=== PATIENT | female | born 1955 | race Caucasian/White ===

== ENCOUNTER 2018-03-27 10:33 | Emergency (ER) | payer MEDICARE, BC ==
[~2018-03-27] VITALS: Ht 172.7 cm; Wt 121.1 kg
[~2018-03-27 10:33] MED LIST: ALBIPROI; ALBIPROI XX; ALBU90OI INH; ASPI81EC PO; AZIT500; BENZ100A PO; CYCL10 PO; FAMO10 PO; FAMO20; FAMO20 PO; FURO20 PO; FURO40; FURO40 PO; HYDACE5 PO; HYDR-86; HYDR1TAB94 PO; HYDROCODONE-CHLORPHE; LANS30EC; LIDO5TP TOP; LOVA40; MAXALT PO; MELO7.5 PO; Mucinex100 MG PO; Mucinex600 MG PO; NAPR550 PO; Naprosyn500 MG PO; OXYACE5T PO; POTA10T PO; POTCHL10ER; PRED20 PO; PREG75 PO; PROM25 PO; STOOL SOFTENER1 EAC1 PO; TIOT18; VICODIN 5-3001 EACH PO; [UNRECOGNIZED DRUG - REMARK]; [UNRECOGNIZED DRUG - REMARK]
[2018-03-27 11:17] LABS: Source, Urine Clean Catch
[2018-03-27 11:24] LABS: Bilirubin, Urine Neg (Neg); Blood, Urine 1+ (Neg); Glucose Qualitative, Urine Neg (Neg); Ketones, Urine Neg (Neg); Leukocyte Esterase, Urine 1+ (Neg); Nitrite, Urine Neg (Neg); Protein, Urine 1+ (Neg); Urobilinogen, Urine NORM (Normal)
[2018-03-27 11:40] LABS: Appearance, Urine Clear (Clear); Color, Urine Yellow (P-Yellow)
[2018-03-27 11:45] LABS: Bacteria Few /hpf; Red Blood Cells, Urine 0-2 /hpf (0-2); Squamous Epithelial Cells Few /hpf (Few)
[2018-03-27] MEDS ORDERED: Cheratussin AC118 ML PO (11:54)
[2018-03-27] MEDS ORDERED: SINUS 12 HOUR120 MG PO (11:54)
== END 2018-03-27 12:06 | disposition home or self-care (01) ==
LOC: ER 10:33
PROVIDERS: Physician Assistant
DX: J06.9 Acute upper respiratory infection, unspecified (principal); Z91.048 Other nonmedicinal substance allergy status; Z88.8 Allergy status to other drugs, medicaments and biological substances; Z91.018 Allergy to other foods; Z79.899 Other long term (current) drug therapy; Z79.891 Long term (current) use of opiate analgesic; J45.909 Unspecified asthma, uncomplicated
CPT/HCPCS: 81001; 87086; 99283

== ENCOUNTER 2018-10-24 22:27 | Emergency (ER) | payer MEDICARE ==
[~2018-10-24] VITALS: Ht 172.7 cm; Wt 117.9 kg
[~2018-10-24 22:27] MED LIST changes: +Cheratussin AC118 ML PO; +IBUP800 PO; +KETO10 PO; +SINUS 12 HOUR120 MG PO
[2018-10-24] MEDS ORDERED: KETO10 PO (23:39)
[2018-10-24] MEDS ORDERED: Prednisone20 MG PO (23:39)
== END 2018-10-25 00:01 | disposition home or self-care (01) ==
LOC: ER 22:27
DX: M54.42 Lumbago with sciatica, left side (principal); G89.29 Other chronic pain; Z91.018 Allergy to other foods; Z88.1 Allergy status to other antibiotic agents
CPT/HCPCS: 99283; A9270-GY

== ENCOUNTER 2019-05-25 16:13 | Emergency (ER) | payer MEDICARE, BC ==
[~2019-05-25] VITALS: Ht 172.7 cm; Wt 122.5 kg
[~2019-05-25 16:13] MED LIST changes: +Prednisone20 MG PO
[2019-05-25 17:52] LABS: BASOPHILS ABSOLUTE AUTO 0.05 K/mm3 (0.00-0.23); BASOPHILS PERCENT AUTO 0 % (0-2); EOSINOPHILS ABSOLUTE AUTO 0.21 K/mm3 (0.00-0.68); EOSINOPHILS PERCENT AUTO 2 % (0-6); Hematocrit 47.3 % (33.0-51.0); Hemoglobin 14.7 g/dL (11.5-16.0); IMMATURE GRAN ABSOLUTE AUTO 0.03 K/mm3 (0.00-0.10); IMMATURE GRAN PERCENT AUTO 0 % (0-1); LYMPHOCYTES ABSOLUTE AUTO 2.29 K/mm3 (0.84-5.20); LYMPHOCYTES PERCENT AUTO 20 % (21-46); MONOCYTES ABSOLUTE AUTO 0.65 K/mm3 (0.16-1.47); MONOCYTES PERCENT AUTO 6 % (4-13); Mean Corpuscular HGB 29.6 pg (26.0-34.0); Mean Corpuscular HGB Conc 31.1 g/dL (31.5-36.5); Mean Corpuscular Volume 95 fL (80-100); Mean Platelet Volume 9.6 fL (9.1-12.4); NEUTROPHILS ABSOLUTE AUTO 8.19 K/mm3 (1.96-9.15); NEUTROPHILS PERCENT AUTO 72 % (41-73); Platelet Count 237 K/mm3 (150-400); RDW Standard Deviation 45.2 fL (35.1-46.3); Red Blood Cell Count 4.97 M/mm3 (3.80-5.20); White Blood Cell Count 11.42 K/mm3 (4.00-11.30)
[2019-05-25 18:58] LABS: Alanine Aminotransfer (ALT/SGP 40 U/L (12-78); Albumin, Blood 3.4 g/dL (3.4-5.0); Alk Phos 108 U/L (50-136); Anion Gap 5 mmol/L (6-16); Aspartate Aminotrans (AST/SGOT 24 U/L (12-37); Bilirubin, Total 0.6 mg/dL (0.1-1.0); Blood Urea Nitrogen 11 mg/dL (8-24); CO2, Blood 27 mmol/L (21-32); Calcium, Blood 8.5 mg/dL (8.5-10.1); Chloride, Blood 108 mmol/L (98-108); Creatinine, Blood 0.41 mg/dL (0.40-1.00); Globulin, Blood 3.4 g/dL (2.2-4.0); Glomerular Filtration Rate >60 (60-); Glucose, Blood 89 mg/dL (70-99); Potassium, Blood 3.9 mmol/L (3.5-5.5); Sodium, Blood 140 mmol/L (136-145); Total Protein, Blood 6.8 g/dL (6.4-8.2); Troponin I <0.015 ng/mL (0.000-0.040)
[2019-05-25] MEDS ORDERED: Roxicodone5 MG PO (19:16)
[2019-05-25] MEDS ORDERED: PEPCID40 MG PO (19:16)
== END 2019-05-25 19:51 | disposition home or self-care (01) ==
LOC: ER 16:13
PROVIDERS: Physician Assistant
DX: R07.9 Chest pain, unspecified (principal); M79.7 Fibromyalgia
CPT/HCPCS: 36415; 71046; 80053; 84484; 85025; 93005; 93010; 96374; 96375; 99284-25; A9270; J1170; J2405

== ENCOUNTER 2019-11-18 11:27 | Emergency (ER) | payer MEDICARE, BC ==
[~2019-11-18] VITALS: Ht 170.2 cm; Wt 90.7 kg
[~2019-11-18 11:27] MED LIST changes: +PEPCID40 MG PO; +Roxicodone5 MG PO
[2019-11-18] MEDS ORDERED: ZYRTEC10 M2 PO (11:50)
[2019-11-18] MEDS ORDERED: MONTELUKAST TAB 10M (11:53)
[2019-11-18 13:20] LABS: BASOPHILS ABSOLUTE AUTO 0.06 K/mm3 (0.00-0.23); BASOPHILS PERCENT AUTO 0 % (0-2); EOSINOPHILS ABSOLUTE AUTO 0.02 K/mm3 (0.00-0.68); EOSINOPHILS PERCENT AUTO 0 % (0-6); Hematocrit 48.1 % (33.0-51.0); Hemoglobin 15.2 g/dL (11.5-16.0); IMMATURE GRAN ABSOLUTE AUTO 0.07 K/mm3 (0.00-0.10); IMMATURE GRAN PERCENT AUTO 1 % (0-1); LYMPHOCYTES ABSOLUTE AUTO 1.31 K/mm3 (0.84-5.20); LYMPHOCYTES PERCENT AUTO 9 % (21-46); MONOCYTES ABSOLUTE AUTO 0.76 K/mm3 (0.16-1.47); MONOCYTES PERCENT AUTO 5 % (4-13); Mean Corpuscular HGB 29.3 pg (26.0-34.0); Mean Corpuscular HGB Conc 31.6 g/dL (31.5-36.5); Mean Corpuscular Volume 93 fL (80-100); Mean Platelet Volume 9.8 fL (9.1-12.4); NEUTROPHILS PERCENT AUTO 86 % (41-73); Platelet Count 269 K/mm3 (150-400); RDW Coefficient Variation 13.4 % (11.7-14.2); RDW Standard Deviation 45.9 fL (35.1-46.3); Red Blood Cell Count 5.19 M/mm3 (3.80-5.20); White Blood Cell Count 15.42 K/mm3 (4.00-11.30)
[2019-11-18 13:44] LABS: Alanine Aminotransfer (ALT/SGP 38 U/L (12-78); Albumin, Blood 3.4 g/dL (3.4-5.0); Albumin/Globulin Ratio 0.9 (0.8-1.8); Alk Phos 119 U/L (50-136); Anion Gap 6 mmol/L (6-16); Aspartate Aminotrans (AST/SGOT 18 U/L (12-37); Bilirubin, Total 0.7 mg/dL (0.1-1.0); Blood Urea Nitrogen 20 mg/dL (8-24); Bun/Creatinine Ratio 33.8 (12.0-20.0); CO2, Blood 26 mmol/L (21-32); Calcium, Blood 9.3 mg/dL (8.5-10.1); Chloride, Blood 108 mmol/L (98-108); Creatinine, Blood 0.59 mg/dL (0.40-1.00); Globulin, Blood 3.7 g/dL (2.2-4.0); Glomerular Filtration Rate >60 (60-); Glucose, Blood 107 mg/dL (70-99); Potassium, Blood 4.1 mmol/L (3.5-5.5); Sodium, Blood 140 mmol/L (136-145); Total Protein, Blood 7.1 g/dL (6.4-8.2)
[2019-11-18 13:54] LABS: Appearance, Urine Hazy (Clear); Bilirubin, Urine Neg (Neg); Blood, Urine 5+ (Neg); Color, Urine Yellow (P-Yellow); Glucose Qualitative, Urine Neg (Neg); Ketones, Urine Neg (Neg); Leukocyte Esterase, Urine 2+ (Neg); Nitrite, Urine Neg (Neg); Protein, Urine 2+ (Neg); Specific Gravity, Urine 1.025 (1.003-1.022); Urobilinogen, Urine NORM (Normal)
[2019-11-18 14:08] LABS: Red Blood Cells, Urine 25-50 /hpf (0-2)
[2019-11-18 14:09] LABS: Bacteria Many /hpf; Mucus Mod (0-Heavy); Squamous Epithelial Cells Mod /hpf (Few)
[2019-11-18] MEDS ORDERED: IBUP400 PO (14:19)
[2019-11-18] MEDS ORDERED: ONDA4ODT SL (14:19)
[2019-11-18] MEDS ORDERED: Percocet 5-3251 EACH PO (14:19)
== END 2019-11-18 14:36 | disposition home or self-care (01) ==
LOC: ER 11:27
PROVIDERS: Emergency Medicine
DX: N20.2 Calculus of kidney with calculus of ureter (principal); Z88.1 Allergy status to other antibiotic agents; Z79.899 Other long term (current) drug therapy
CPT/HCPCS: 36415; 74176; 80053; 81001; 83690; 85025; 87086; 96374; 96375; 99284-25; J1170; J1885; J2405

== ENCOUNTER → 2020-01-22 | Outpatient (CLI) | payer MEDICARE, BC ==
[~2020-01-22] MED LIST changes: +IBUP400 PO; +MONTELUKAST TAB 10M; +ONDA4ODT SL; +Percocet 5-3251 EACH PO; +ZYRTEC10 M2 PO
[2020-01-23 09:36] LABS: Stool Occult Bld Immuno 1 Negative (NEGATIVE)
== END | disposition home or self-care (01) ==
LOC: LAB SHORT 08:42 → LAB SRC 08:42
PROVIDERS: Nurse Practitioner Family
DX: K92.1 Melena (principal)
CPT/HCPCS: 82274

== ENCOUNTER 2020-03-29 11:14 | Emergency (ER) | payer MEDICARE, BC ==
[~2020-03-29] VITALS: Ht 172.7 cm; Wt 122.5 kg
[2020-03-29] MEDS ORDERED: Norco 7.5-3251 EACH PO (14:13)
[2020-03-29] MEDS ORDERED: CEPH500 PO (14:13)
== END 2020-03-29 14:35 | disposition home or self-care (01) ==
LOC: ER 11:14
DX: S92.532B Displaced fracture of distal phalanx of left lesser toe(s), initial encounter for open fracture (principal); S80.12XA Contusion of left lower leg, initial encounter; Z88.8 Allergy status to other drugs, medicaments and biological substances; Z91.018 Allergy to other foods; Z79.899 Other long term (current) drug therapy; W20.8XXA Other cause of strike by thrown, projected or falling object, initial encounter; Y93.89 Activity, other specified
CPT/HCPCS: 73590; 73630; 99283-25; A9270-GY

== ENCOUNTER 2020-11-05 13:58 | Emergency (ER) | payer MEDICARE, BC ==
[~2020-11-05] VITALS: Ht 172.7 cm; Wt 120.2 kg
[~2020-11-05 13:58] MED LIST changes: +CEPH500 PO; +Norco 7.5-3251 EACH PO
[2020-11-05 15:44] LABS: BASOPHILS ABSOLUTE AUTO 0.05 K/mm3 (0.00-0.23); BASOPHILS PERCENT AUTO 1 % (0-2); EOSINOPHILS PERCENT AUTO 4 % (0-6); Hematocrit 47.2 % (33.0-51.0); Hemoglobin 15.4 g/dL (11.5-16.0); IMMATURE GRAN ABSOLUTE AUTO 0.04 K/mm3 (0.00-0.10); IMMATURE GRAN PERCENT AUTO 1 % (0-1); LYMPHOCYTES ABSOLUTE AUTO 2.25 K/mm3 (0.84-5.20); LYMPHOCYTES PERCENT AUTO 26 % (21-46); MONOCYTES ABSOLUTE AUTO 0.56 K/mm3 (0.16-1.47); MONOCYTES PERCENT AUTO 7 % (4-13); Mean Corpuscular HGB 29.1 pg (26.0-34.0); Mean Corpuscular HGB Conc 32.6 g/dL (31.5-36.5); Mean Corpuscular Volume 89 fL (80-100); Mean Platelet Volume 10.1 fL (9.1-12.4); NEUTROPHILS ABSOLUTE AUTO 5.41 K/mm3 (1.96-9.15); NEUTROPHILS PERCENT AUTO 63 % (41-73); Platelet Count 267 K/mm3 (150-400); RDW Coefficient Variation 13.5 % (11.7-14.2); RDW Standard Deviation 44.1 fL (35.1-46.3); Red Blood Cell Count 5.29 M/mm3 (3.80-5.20); White Blood Cell Count 8.61 K/mm3 (4.00-11.30)
[2020-11-05 16:06] LABS: Alanine Aminotransfer (ALT/SGP 45 U/L (12-78); Albumin, Blood 3.7 g/dL (3.4-5.0); Alk Phos 114 U/L (50-136); Anion Gap 4 mmol/L (6-16); Aspartate Aminotrans (AST/SGOT 30 U/L (12-37); Bilirubin, Total 1.1 mg/dL (0.1-1.0); Blood Urea Nitrogen 15 mg/dL (8-24); Bun/Creatinine Ratio 23.7 (12.0-20.0); CO2, Blood 29 mmol/L (21-32); Calcium, Blood 9.5 mg/dL (8.5-10.1); Chloride, Blood 104 mmol/L (98-108); Creatinine, Blood 0.63 mg/dL (0.40-1.00); Globulin, Blood 3.7 g/dL (2.2-4.0); Glomerular Filtration Rate >60 (60-); Glucose, Blood 101 mg/dL (70-99); Potassium, Blood 4.1 mmol/L (3.5-5.5); Sodium, Blood 137 mmol/L (136-145); Total Protein, Blood 7.4 g/dL (6.4-8.2)
[2020-11-05 16:39] LABS: Source, Urine Clean Catch
[2020-11-05 17:02] LABS: Appearance, Urine Clear (Clear); Bilirubin, Urine Neg (Neg); Blood, Urine 1+ (Neg); Color, Urine Yellow (P-Yellow); Glucose Qualitative, Urine Neg (Neg); Ketones, Urine 1+ (Neg); Leukocyte Esterase, Urine 3+ (Neg); Nitrite, Urine Neg (Neg); Protein, Urine 2+ (Neg); Specific Gravity, Urine 1.025 (1.003-1.022); Urobilinogen, Urine 2+ (Normal)
[2020-11-05 17:06] LABS: Bacteria Many /hpf; Hyaline Casts 0-2 /lpf (0-2); Red Blood Cells, Urine 0-2 /hpf (0-2); Squamous Epithelial Cells Few /hpf (Few)
== END 2020-11-05 18:25 | disposition home or self-care (01) ==
LOC: ER 13:58
PROVIDERS: Physician Assistant
DX: R09.1 Pleurisy (principal); M54.40 Lumbago with sciatica, unspecified side; G89.29 Other chronic pain; R79.89 Other specified abnormal findings of blood chemistry; Z91.018 Allergy to other foods; Z88.1 Allergy status to other antibiotic agents
CPT/HCPCS: 36415; 71046; 80053; 81001; 83690; 85025; 85379; 87086; 99283-25

== ENCOUNTER 2021-01-30 18:27 | Emergency (ER) | payer MEDICARE, BC ==
[~2021-01-30] VITALS: Ht 172.7 cm; Wt 121.1 kg
[2021-01-30 20:24] LABS: BASOPHILS ABSOLUTE AUTO 0.06 K/mm3 (0.00-0.23); BASOPHILS PERCENT AUTO 1 % (0-2); EOSINOPHILS ABSOLUTE AUTO 0.11 K/mm3 (0.00-0.68); EOSINOPHILS PERCENT AUTO 1 % (0-6); Hematocrit 45.9 % (33.0-51.0); Hemoglobin 14.9 g/dL (11.5-16.0); IMMATURE GRAN ABSOLUTE AUTO 0.05 K/mm3 (0.00-0.10); IMMATURE GRAN PERCENT AUTO 0 % (0-1); LYMPHOCYTES ABSOLUTE AUTO 2.38 K/mm3 (0.84-5.20); LYMPHOCYTES PERCENT AUTO 21 % (21-46); MONOCYTES ABSOLUTE AUTO 0.57 K/mm3 (0.16-1.47); MONOCYTES PERCENT AUTO 5 % (4-13); Mean Corpuscular HGB 29.3 pg (26.0-34.0); Mean Corpuscular HGB Conc 32.5 g/dL (31.5-36.5); Mean Corpuscular Volume 90 fL (80-100); Mean Platelet Volume 9.8 fL (9.1-12.4); NEUTROPHILS ABSOLUTE AUTO 8.28 K/mm3 (1.96-9.15); NEUTROPHILS PERCENT AUTO 72 % (41-73); Platelet Count 305 K/mm3 (150-400); RDW Coefficient Variation 13.7 % (11.7-14.2); RDW Standard Deviation 46.1 fL (35.1-46.3); Red Blood Cell Count 5.08 M/mm3 (3.80-5.20); White Blood Cell Count 11.45 K/mm3 (4.00-11.30)
[2021-01-30 20:58] LABS: Alanine Aminotransfer (ALT/SGP 39 U/L (12-78); Albumin, Blood 3.5 g/dL (3.4-5.0); Alk Phos 115 U/L (50-136); Anion Gap 4 mmol/L (6-16); Aspartate Aminotrans (AST/SGOT 21 U/L (12-37); Bilirubin, Total 0.4 mg/dL (0.1-1.0); Blood Urea Nitrogen 19 mg/dL (8-24); Bun/Creatinine Ratio 35.4 (12.0-20.0); CO2, Blood 29 mmol/L (21-32); Calcium, Blood 9.3 mg/dL (8.5-10.1); Chloride, Blood 107 mmol/L (98-108); Creatinine, Blood 0.54 mg/dL (0.40-1.00); Globulin, Blood 3.6 g/dL (2.2-4.0); Glomerular Filtration Rate >60 (60-); Glucose, Blood 120 mg/dL (70-99); Potassium, Blood 4.4 mmol/L (3.5-5.5); Sodium, Blood 140 mmol/L (136-145); Total Protein, Blood 7.1 g/dL (6.4-8.2)
[2021-01-30] MEDS ORDERED: CEPH500 PO (21:02)
== END 2021-01-30 21:19 | disposition home or self-care (01) ==
LOC: ER 18:27
PROVIDERS: Physician Assistant
DX: L03.114 Cellulitis of left upper limb (principal); G43.909 Migraine, unspecified, not intractable, without status migrainosus; Z79.899 Other long term (current) drug therapy
CPT/HCPCS: 80053; 85025; 99283; A9270

== ENCOUNTER 2021-03-21 17:04 | Inpatient (IN) | payer MEDICARE, BC ==
[~2021-03-21] VITALS: Ht 172.7 cm; Wt 127.1 kg
[2021-03-21 18:35] LABS: BASOPHILS ABSOLUTE AUTO 0.04 K/mm3 (0.00-0.23); BASOPHILS PERCENT AUTO 0 % (0-2); EOSINOPHILS ABSOLUTE AUTO 0.14 K/mm3 (0.00-0.68); EOSINOPHILS PERCENT AUTO 1 % (0-6); Hematocrit 50.2 % (33.0-51.0); IMMATURE GRAN ABSOLUTE AUTO 0.07 K/mm3 (0.00-0.10); IMMATURE GRAN PERCENT AUTO 1 % (0-1); LYMPHOCYTES ABSOLUTE AUTO 1.84 K/mm3 (0.84-5.20); LYMPHOCYTES PERCENT AUTO 14 % (21-46); MONOCYTES ABSOLUTE AUTO 0.59 K/mm3 (0.16-1.47); MONOCYTES PERCENT AUTO 4 % (4-13); Mean Corpuscular HGB 29.3 pg (26.0-34.0); Mean Corpuscular HGB Conc 31.9 g/dL (31.5-36.5); Mean Corpuscular Volume 92 fL (80-100); Mean Platelet Volume 9.3 fL (9.1-12.4); NEUTROPHILS ABSOLUTE AUTO 10.73 K/mm3 (1.96-9.15); NEUTROPHILS PERCENT AUTO 80 % (41-73); Platelet Count 322 K/mm3 (150-400); RDW Coefficient Variation 13.7 % (11.7-14.2); RDW Standard Deviation 46.4 fL (35.1-46.3); Red Blood Cell Count 5.46 M/mm3 (3.80-5.20); White Blood Cell Count 13.41 K/mm3 (4.00-11.30)
[2021-03-21 19:11] LABS: Troponin I <0.015 ng/mL (0.000-0.040)
[2021-03-21 19:21] LABS: Alanine Aminotransfer (ALT/SGP 30 U/L (12-78); Albumin, Blood 3.7 g/dL (3.4-5.0); Alk Phos 126 U/L (50-136); Anion Gap 4 mmol/L (6-16); Aspartate Aminotrans (AST/SGOT 20 U/L (12-37); Bilirubin, Total 0.6 mg/dL (0.1-1.0); Blood Urea Nitrogen 15 mg/dL (8-24); Bun/Creatinine Ratio 26.6 (12.0-20.0); CO2, Blood 30 mmol/L (21-32); Calcium, Blood 9.8 mg/dL (8.5-10.1); Chloride, Blood 105 mmol/L (98-108); Creatinine, Blood 0.56 mg/dL (0.40-1.00); Globulin, Blood 3.6 g/dL (2.2-4.0); Glomerular Filtration Rate >60 (60-); Glucose, Blood 116 mg/dL (70-99); Potassium, Blood 4.5 mmol/L (3.5-5.5); Sodium, Blood 139 mmol/L (136-145); Total Protein, Blood 7.3 g/dL (6.4-8.2)
[2021-03-21 19:34] LABS: Source, Urine Clean Catch
[2021-03-21 19:39] LABS: Appearance, Urine Hazy (Clear); Bilirubin, Urine Neg (Neg); Blood, Urine 2+ (Neg); Color, Urine Yellow (P-Yellow); Glucose Qualitative, Urine Neg (Neg); Ketones, Urine Neg (Neg); Leukocyte Esterase, Urine 3+ (Neg); Nitrite, Urine Neg (Neg); Protein, Urine 1+ (Neg); Urobilinogen, Urine NORM (Normal)
[2021-03-21 19:59] LABS: White Blood Cells, Urine TNTC /hpf (0-5)
[2021-03-21 20:00] LABS: Bacteria Many /hpf; Squamous Epithelial Cells Few /hpf (Few)
--- NOTE | 2021-03-22 02:56 | NUR ---
POLYSOMNOGRAPHY TECHNICIAN SUMMARY PATIENT IS AN ADMISSION FRON THE ED. ALERT AND ORIENTED. SHE CAME IN WITH ABDOMINAL PAIN AND NEEDED PAIN MED, THE C D STRIPPER GOT AN ORDER FOR A STAT DOSE OF FENTANYL AND SAME WAS ADMINISTERED.. HER ASSESSMENT DONE AND DOCUMENTED. NO SKIN ISSUES NOTED. SHE LODGED NO OTHER COMPLAINTS, VITALS WERE CHARTED AND ARE STABLE.
[2021-03-22 05:28] LABS: BASOPHILS ABSOLUTE AUTO 0.04 K/mm3 (0.00-0.23); BASOPHILS PERCENT AUTO 0 % (0-2); EOSINOPHILS ABSOLUTE AUTO 0.04 K/mm3 (0.00-0.68); EOSINOPHILS PERCENT AUTO 0 % (0-6); Hematocrit 48.6 % (33.0-51.0); Hemoglobin 15.1 g/dL (11.5-16.0); IMMATURE GRAN ABSOLUTE AUTO 0.05 K/mm3 (0.00-0.10); IMMATURE GRAN PERCENT AUTO 0 % (0-1); LYMPHOCYTES PERCENT AUTO 17 % (21-46); MONOCYTES ABSOLUTE AUTO 0.73 K/mm3 (0.16-1.47); MONOCYTES PERCENT AUTO 6 % (4-13); Mean Corpuscular HGB 28.9 pg (26.0-34.0); Mean Corpuscular HGB Conc 31.1 g/dL (31.5-36.5); Mean Corpuscular Volume 93 fL (80-100); Mean Platelet Volume 9.4 fL (9.1-12.4); NEUTROPHILS ABSOLUTE AUTO 9.09 K/mm3 (1.96-9.15); NEUTROPHILS PERCENT AUTO 76 % (41-73); Platelet Count 280 K/mm3 (150-400); RDW Coefficient Variation 13.7 % (11.7-14.2); RDW Standard Deviation 47.3 fL (35.1-46.3); Red Blood Cell Count 5.22 M/mm3 (3.80-5.20); White Blood Cell Count 12.05 K/mm3 (4.00-11.30)
[2021-03-22 06:16] LABS: Alanine Aminotransfer (ALT/SGP 28 U/L (12-78); Albumin/Globulin Ratio 0.8 (0.8-1.8); Alk Phos 105 U/L (50-136); Anion Gap 7 mmol/L (6-16); Aspartate Aminotrans (AST/SGOT 8 U/L (12-37); Bilirubin, Total 0.7 mg/dL (0.1-1.0); Blood Urea Nitrogen 15 mg/dL (8-24); Bun/Creatinine Ratio 30.2 (12.0-20.0); CO2, Blood 27 mmol/L (21-32); Calcium, Blood 9.1 mg/dL (8.5-10.1); Chloride, Blood 108 mmol/L (98-108); Globulin, Blood 3.7 g/dL (2.2-4.0); Glomerular Filtration Rate >60 (60-); Glucose, Blood 111 mg/dL (70-99); Potassium, Blood 4.5 mmol/L (3.5-5.5); Sodium, Blood 142 mmol/L (136-145); Total Protein, Blood 6.7 g/dL (6.4-8.2)
--- NOTE | 2021-03-22 14:39 | NUR ---
Initial Interview with [facility] Community [employer] Helper 1. Who did you speak with? Spoke with patient 2. What is the patient's prior level of functions? Independent lives with and dog Mia. and daughter assists with ADL's; patient has a [id number], cane, and a walker. 3. What is the patient's current living situation? Lives with and dog Mia. They have a single story manufactured home with four riser stairs. Patient states her home is safe with running water, electricity, heat, and sewage. 4. Is the patient and/or family able to provide transportation to and from doctor's appointments and pick up driver prescriptions? Yes, patient still drives 5. Does patient still drive? Yes 6. POA/PCP/NOK: NOK: Jorge/PCP Dr. eGorgia Becerra 7. Discharge goals: Home/TBD -Home: patient more than likely will discharge home-no barriers; patient has running water/utilities/safe home environment/support network -DME: TBD; patient has a walker, cane, [id number]/bath set-up -Medication Management: self-management -Preferred Pharmacy: [facility] -Housekeeping need: and daughter assists as needed -Cooking: and daughter assists as needed 8. List barriers to discharge: None known at this time 9. Discharge Plan: Plan is to discharge home/TBD 10. PCP Follow up appointment: Will be scheduled within seven calendar days of discharge
--- NOTE | 2021-03-22 19:30 | NUR ---
PT A/O. VSS. PAIN TREATED WITH TYELNOL PER UPON DR JOHN MELLO REQUEST. PT IS NPO BUT CAN HAVE ICE CHIPS PER DR JOHN Ocampo. SMALL BOWEL FOLLOW THROUG SCHEDULED FOR TOMORROW. NO ACUTE CHANGES. REPORT GIVEN TO STOCKROOM COORDINATOR
--- NOTE | 2021-03-22 19:57 | NUR ---
LATE ENTRY 03/22/21; 0405 PATIENT REFUSED FLUSHOT BUT SHE WAS GIVEN 25MCG OF FENTANYL, IV.
--- NOTE | 2021-03-23 04:18 | NUR ---
VALVER SUMMARY PATIENT HAD A FAIR SHIFT, HER VITALS WERE STABLE. SHE DID HAVE PAIN AND NAUSEA MED NEEDED, SEE EMAR. WILL CONTINUE TO MONITOR HER.
--- NOTE | 2021-03-23 19:32 | NUR ---
PT C/O PAIN AND NAUSEA FOR SHIFT. TREATED PAIN AND NAUSEA PER EMAR. PT REFUSED SMALL BOWEL FOLLOW THROUGH. PROVIDER NOTIFIED. REPORT GIVEN TO CAREER PLACEMENT SERVICES COUNSELOR NURSE
--- NOTE | 2021-03-24 03:24 | NUR ---
GOODYEAR WELTER SUMMARY PATIENT HAD A FAIR SHIFT. WITH VITALS CHECKED, RECORDED AND IS STABLE. SAID TO HAVE MILD PAIN WHEN SHE MOVES HER LEG AND TRIES TO MOVE. BUT NO ABDOMINAL PAIN. SHE STATED SHE HAD SEVERAL BOWEL MOVEMENT AND NOW SHE FEELS MORE EMPTY, JUST PASSING GAS. SO SHE REFUSED HER NIGHT TIME STOOL SOFETENERS. WILL CONTINUE TO MONITOR HER.
--- NOTE | 2021-03-24 15:50 | NUR ---
PT A/O DENIES PAIN/DISCOMFORT FOR SHIFT. NO ACUTE CHANGES,AMBULATES WELL TO THE BATHROOM AND HAD MORE THAN 1 BM. PT REFUSED LAXATIVE PER MAY. PT ATE LUNCH AND WAS ABLE TO TOLERATE IT. NO NEW COMPLAINTS. 1515- PT IS DISCHARGED. DISCHARGE INSTRUCTIONS PROVIDED. PT VERBALIZED UNDERSTANDING. IV REMOVED
--- NOTE | 2021-03-24 16:34 | NUR ---
Per Dr. Villagomez discharge appropriate on today, 03/24/21. Spoke with patient and she is aware of discharge and does not oppose. Patient's provided transportation to residence. DME: patient has a walker, but feels she needs a rollator to sit when she is tired and winded. Patient declined PT evaluation on 03/23; 03/24 PT states patient mobilizing at independent level with assistive device (walker). Transition of care will contact patient to schedule hospital PCP follow up and patient understands if any health concerns or medication management questions, she may contact his PCP; or if health worsens to go to Urgent Care . Patient states he has a good support network of family and friends. No barriers to discharge at this time.
== END 2021-03-24 16:03 | disposition home or self-care (01) | DRG 389 ==
LOC: ER 17:04 → MEDS 17:05
PROVIDERS: Family Medicine; Physician Assistant; ADMIT Internal Medicine
DX: K56.600 Partial intestinal obstruction, unspecified as to cause (principal); Z68.41 Body mass index [BMI] 40.0-44.9, adult; M79.7 Fibromyalgia; G43.909 Migraine, unspecified, not intractable, without status migrainosus; E66.9 Obesity, unspecified; K21.9 Gastro-esophageal reflux disease without esophagitis; Z90.49 Acquired absence of other specified parts of digestive tract; Z98.890 Other specified postprocedural states; Z90.710 Acquired absence of both cervix and uterus; Z90.89 Acquired absence of other organs; Z86.718 Personal history of other venous thrombosis and embolism; Z79.899 Other long term (current) drug therapy; Z88.1 Allergy status to other antibiotic agents; Z91.018 Allergy to other foods; Z28.21 Immunization not carried out because of patient refusal
CPT/HCPCS: 36415; 74018; 74176; 80053; 81001; 83690; 84484; 85025; 87086; 93005; 93010; 96365; 96372; 96375; 96376; 97161; 97530; 99285-25; A9270; G0378; J0696; J1170; J1650; J2405; J2765; J3010; J7030; J7120

== ENCOUNTER 2021-04-06 10:04 | Emergency (ER) | payer MEDICARE, BC ==
[~2021-04-06] VITALS: Ht 172.7 cm; Wt 123.8 kg
[2021-04-06 10:44] LABS: Source, Urine Clean Catch
[2021-04-06 10:57] LABS: Bilirubin, Urine Neg (Neg); Blood, Urine 1+ (Neg); Glucose Qualitative, Urine Neg (Neg); Ketones, Urine Neg (Neg); Leukocyte Esterase, Urine 2+ (Neg); Nitrite, Urine Neg (Neg); Protein, Urine 1+ (Neg); Specific Gravity, Urine 1.015 (1.003-1.022); Urobilinogen, Urine 1+ (Normal)
[2021-04-06] MEDS ORDERED: OXYC10ER PO (11:13)
[2021-04-06 11:27] LABS: Appearance, Urine Hazy (Clear); Color, Urine Yellow (P-Yellow)
[2021-04-06 11:36] LABS: Bacteria Mod /hpf; Mucus Light (0-Heavy); Red Blood Cells, Urine 0-2 /hpf (0-2); Squamous Epithelial Cells Mod /hpf (Few)
[2021-04-06 11:58] LABS: BASOPHILS ABSOLUTE AUTO 0.01 K/mm3 (0.00-0.23); BASOPHILS PERCENT AUTO 0 % (0-2); EOSINOPHILS ABSOLUTE AUTO 0.02 K/mm3 (0.00-0.68); EOSINOPHILS PERCENT AUTO 1 % (0-6); Hematocrit 46.7 % (33.0-51.0); Hemoglobin 15.4 g/dL (11.5-16.0); IMMATURE GRAN ABSOLUTE AUTO 0.02 K/mm3 (0.00-0.10); IMMATURE GRAN PERCENT AUTO 1 % (0-1); LYMPHOCYTES ABSOLUTE AUTO 0.79 K/mm3 (0.84-5.20); LYMPHOCYTES PERCENT AUTO 22 % (21-46); MONOCYTES ABSOLUTE AUTO 0.26 K/mm3 (0.16-1.47); MONOCYTES PERCENT AUTO 7 % (4-13); Mean Corpuscular HGB 29.4 pg (26.0-34.0); Mean Corpuscular Volume 89 fL (80-100); Mean Platelet Volume 9.5 fL (9.1-12.4); NEUTROPHILS ABSOLUTE AUTO 2.58 K/mm3 (1.96-9.15); NEUTROPHILS PERCENT AUTO 70 % (41-73); Platelet Count 239 K/mm3 (150-400); RDW Standard Deviation 42.6 fL (35.1-46.3); Red Blood Cell Count 5.24 M/mm3 (3.80-5.20); White Blood Cell Count 3.68 K/mm3 (4.00-11.30)
[2021-04-06 12:10] LABS: Alanine Aminotransfer (ALT/SGP 70 U/L (12-78); Albumin, Blood 3.6 g/dL (3.4-5.0); Albumin/Globulin Ratio 0.9 (0.8-1.8); Alk Phos 115 U/L (50-136); Anion Gap 5 mmol/L (6-16); Aspartate Aminotrans (AST/SGOT 44 U/L (12-37); Bilirubin, Total 0.7 mg/dL (0.1-1.0); Blood Urea Nitrogen 8 mg/dL (8-24); Bun/Creatinine Ratio 15.9 (12.0-20.0); CO2, Blood 31 mmol/L (21-32); Calcium, Blood 9.1 mg/dL (8.5-10.1); Chloride, Blood 101 mmol/L (98-108); Glomerular Filtration Rate >60 (60-); Glucose, Blood 107 mg/dL (70-99); Potassium, Blood 3.7 mmol/L (3.5-5.5); Sodium, Blood 137 mmol/L (136-145); Total Protein, Blood 7.6 g/dL (6.4-8.2)
[2021-04-06] MEDS ORDERED: Robaxin750 MG PO (12:30)
[2021-04-06] MEDS ORDERED: OXYC5 PO (12:30)
[2021-04-06] MEDS ORDERED: METPRE4DP PO (12:30)
== END 2021-04-06 14:34 | disposition home or self-care (01) ==
LOC: ER 10:04
PROVIDERS: Emergency Medicine; Physician Assistant
DX: M54.17 Radiculopathy, lumbosacral region (principal); G43.909 Migraine, unspecified, not intractable, without status migrainosus; Z79.899 Other long term (current) drug therapy
CPT/HCPCS: 80053; 81001; 83690; 85025; 87086; 96372; 99283-25; J1170; J7512

== ENCOUNTER → 2021-04-14 | Outpatient (CLI) | payer MEDICARE, BC ==
[~2021-04-14] MED LIST changes: +METPRE4DP PO; +OXYC10ER PO; +OXYC5 PO; +Robaxin750 MG PO
== END | disposition home or self-care (01) ==
LOC: LAB SHORT 17:50
DX: R32 Unspecified urinary incontinence (principal)
CPT/HCPCS: 87086

== ENCOUNTER 2021-06-23 09:57 | Day surgery (SDC) | payer MEDICARE, BC ==
[~2021-06-23] VITALS: Ht 172.7 cm; Wt 125.3 kg
[2021-06-23] MEDS ORDERED: GABA300 PO (10:36)
== END 2021-06-23 12:40 | disposition home or self-care (01) ==
LOC: ORSCSDS 09:57
PROVIDERS: Surgery
PROC: 0DJD8ZZ Inspection of Lower Intestinal Tract, Via Natural or Artificial Opening Endoscopic (ICD-10-PCS; principal; 2021-06-23 11:15)
DX: R19.4 Change in bowel habit (principal); Z86.010 Personal history of colon polyps; K57.30 Diverticulosis of large intestine without perforation or abscess without bleeding; I10 Essential (primary) hypertension; J44.9 Chronic obstructive pulmonary disease, unspecified; K21.9 Gastro-esophageal reflux disease without esophagitis; E78.5 Hyperlipidemia, unspecified; E66.01 Morbid (severe) obesity due to excess calories; Z68.41 Body mass index [BMI] 40.0-44.9, adult; Z79.899 Other long term (current) drug therapy
CPT/HCPCS: J2704; J7120

== ENCOUNTER 2021-08-21 23:40 | Emergency (ER) | payer MEDICARE, BC ==
[~2021-08-21] VITALS: Ht 172.7 cm; Wt 127.0 kg
[~2021-08-21 23:40] MED LIST changes: +GABA300 PO
[2021-08-22 02:44] LABS: BASOPHILS ABSOLUTE AUTO 0.06 K/mm3 (0.00-0.23); BASOPHILS PERCENT AUTO 0 % (0-2); EOSINOPHILS PERCENT AUTO 1 % (0-6); Hematocrit 47.8 % (33.0-51.0); Hemoglobin 15.7 g/dL (11.5-16.0); IMMATURE GRAN ABSOLUTE AUTO 0.26 K/mm3 (0.00-0.10); IMMATURE GRAN PERCENT AUTO 1 % (0-1); LYMPHOCYTES ABSOLUTE AUTO 1.62 K/mm3 (0.84-5.20); LYMPHOCYTES PERCENT AUTO 8 % (21-46); MONOCYTES ABSOLUTE AUTO 0.75 K/mm3 (0.16-1.47); MONOCYTES PERCENT AUTO 4 % (4-13); Mean Corpuscular HGB 29.8 pg (26.0-34.0); Mean Corpuscular HGB Conc 32.8 g/dL (31.5-36.5); Mean Corpuscular Volume 91 fL (80-100); Mean Platelet Volume 10.1 fL (9.1-12.4); NEUTROPHILS ABSOLUTE AUTO 16.93 K/mm3 (1.96-9.15); NEUTROPHILS PERCENT AUTO 86 % (41-73); Platelet Count 322 K/mm3 (150-400); RDW Coefficient Variation 13.7 % (11.7-14.2); Red Blood Cell Count 5.26 M/mm3 (3.80-5.20); White Blood Cell Count 19.72 K/mm3 (4.00-11.30)
[2021-08-22 02:56] LABS: Albumin, Blood 3.5 g/dL (3.4-5.0); Albumin/Globulin Ratio 0.9 (0.8-1.8); Bun/Creatinine Ratio 31.7 (12.0-20.0); Calcium, Blood 9.2 mg/dL (8.5-10.1); Creatinine, Blood 0.57 mg/dL (0.40-1.00); Globulin, Blood 3.8 g/dL (2.2-4.0); Potassium, Blood 4.6 mmol/L (3.5-5.5); Total Protein, Blood 7.3 g/dL (6.4-8.2)
[2021-08-22] MEDS ORDERED: BENZ100A PO (05:17)
== END 2021-08-22 06:00 | disposition home or self-care (01) ==
LOC: ER 23:40
PROVIDERS: Student in an Organized Health Care Education/Training Program
DX: R05.9 Cough, unspecified (principal); R07.9 Chest pain, unspecified; R10.9 Unspecified abdominal pain; R21 Rash and other nonspecific skin eruption; Z88.8 Allergy status to other drugs, medicaments and biological substances; Z91.018 Allergy to other foods; Z79.899 Other long term (current) drug therapy
CPT/HCPCS: 36415; 71045; 74177; 80053; 83690; 84484; 85025; 93005; 93010; 99284-25; A9270; Q9967

== ENCOUNTER → 2022-01-05 | Outpatient (CLI) | payer MEDICARE, BC ==
[2022-01-05 11:49] LABS: Source, Urine Clean Catch
[2022-01-05 17:47] LABS: Appearance, Urine Cloudy (Clear); Bilirubin, Urine Neg (Neg); Blood, Urine 1+ (Neg); Color, Urine Yellow (P-Yellow); Glucose Qualitative, Urine Neg (Neg); Ketones, Urine Neg (Neg); Leukocyte Esterase, Urine 3+ (Neg); Nitrite, Urine Neg (Neg); Protein, Urine 1+ (Neg); Specific Gravity, Urine 1.025 (1.003-1.022); Urobilinogen, Urine NORM (Normal)
[2022-01-05 18:37] LABS: Bacteria Mod /hpf; Red Blood Cells, Urine 0-2 /hpf (0-2); Squamous Epithelial Cells Mod /hpf (Few)
[2022-01-05 18:38] LABS: Amorphous Heavy (0-Heavy); Calcium Oxalate Crystals Few /hpf
== END | disposition home or self-care (01) ==
LOC: LAB SHORT 11:47 → LAB 11:47
PROVIDERS: Nurse Practitioner Family
DX: N30.80 Other cystitis without hematuria (principal)
CPT/HCPCS: 81001; 87086

== ENCOUNTER 2022-04-10 16:12 | Emergency (ER) | payer MEDICARE, BC ==
[~2022-04-10] VITALS: Ht 172.7 cm; Wt 123.8 kg
[2022-04-10 17:08] LABS: BASOPHILS ABSOLUTE AUTO 0.04 K/mm3 (0.00-0.23); BASOPHILS PERCENT AUTO 1 % (0-2); EOSINOPHILS ABSOLUTE AUTO 0.17 K/mm3 (0.00-0.68); EOSINOPHILS PERCENT AUTO 2 % (0-6); Hematocrit 49.1 % (33.0-51.0); Hemoglobin 16.1 g/dL (11.5-16.0); IMMATURE GRAN ABSOLUTE AUTO 0.05 K/mm3 (0.00-0.10); IMMATURE GRAN PERCENT AUTO 1 % (0-1); LYMPHOCYTES ABSOLUTE AUTO 2.24 K/mm3 (0.84-5.20); LYMPHOCYTES PERCENT AUTO 26 % (21-46); MONOCYTES ABSOLUTE AUTO 0.48 K/mm3 (0.16-1.47); MONOCYTES PERCENT AUTO 6 % (4-13); Mean Corpuscular HGB 29.3 pg (26.0-34.0); Mean Corpuscular HGB Conc 32.8 g/dL (31.5-36.5); Mean Corpuscular Volume 89 fL (80-100); Mean Platelet Volume 9.6 fL (9.1-12.4); NEUTROPHILS ABSOLUTE AUTO 5.62 K/mm3 (1.96-9.15); NEUTROPHILS PERCENT AUTO 65 % (41-73); Platelet Count 326 K/mm3 (150-400); RDW Coefficient Variation 13.5 % (11.7-14.2); RDW Standard Deviation 44.2 fL (35.1-46.3)
[2022-04-10 18:15] LABS: Albumin, Blood 3.8 g/dL (3.4-5.0); Albumin/Globulin Ratio 1.1 (0.8-1.8); Bilirubin, Total 1.3 mg/dL (0.1-1.0); Calcium, Blood 9.3 mg/dL (8.5-10.1); Creatinine, Blood 0.6 mg/dL (0.40-1.00); Globulin, Blood 3.6 g/dL (2.2-4.0); Total Protein, Blood 7.4 g/dL (6.4-8.2)
[2022-04-10] MEDS ORDERED: VICTOZA 2-0.6 MG/0.1 SQ (18:52)
[2022-04-10 19:32] LABS: Source, Urine Clean Catch
[2022-04-10 19:35] LABS: Appearance, Urine Cloudy (Clear); Bilirubin, Urine Neg (Neg); Blood, Urine Neg (Neg); Color, Urine Yellow (P-Yellow); Glucose Qualitative, Urine Neg (Neg); Ketones, Urine Neg (Neg); Leukocyte Esterase, Urine Neg (Neg); Nitrite, Urine Neg (Neg); Protein, Urine 2+ (Neg); Urobilinogen, Urine 2+ (Normal)
[2022-04-10 19:41] LABS: Mucus Mod (0-Heavy)
[2022-04-10 19:42] LABS: Bacteria Many /hpf; Hyaline Casts 0-2 /lpf (0-2); Red Blood Cells, Urine 0-2 /hpf (0-2); Squamous Epithelial Cells Many /hpf (Few)
== END 2022-04-10 22:16 | disposition home or self-care (01) ==
LOC: ER 16:12
PROVIDERS: Physician Assistant
DX: R10.30 Lower abdominal pain, unspecified (principal); Z88.8 Allergy status to other drugs, medicaments and biological substances; Z91.018 Allergy to other foods
CPT/HCPCS: 36415; 74177; 80053; 81001; 83690; 85025; Q9967

== ENCOUNTER → 2022-04-26 | Outpatient (CLI) | payer MEDICARE, BC ==
[~2022-04-26] MED LIST changes: +VICTOZA 2-0.6 MG/0.1 SQ
[2022-04-27 10:03] LABS: Candida species (DNA Probe) Negative (NEGATIVE); G. vaginalis (DNA Probe) Negative (NEGATIVE); T. vaginalis (DNA Probe) Negative (NEGATIVE)
== END | disposition home or self-care (01) ==
LOC: LAB SHORT 17:07 → LAB 17:07
PROVIDERS: Advanced Practice Midwife
DX: N76.0 Acute vaginitis (principal)
CPT/HCPCS: 87480; 87510; 87660

== ENCOUNTER → 2022-07-03 | Outpatient (CLI) | payer MEDICARE, BC | END | disposition home or self-care (01) | LOC: LAB 12:24 → PLD 12:24 → LAB SHORT 12:24 | DX: L57.0 Actinic keratosis (principal) | CPT/HCPCS: 88305 ==

== ENCOUNTER 2023-09-27 16:20 | Emergency (ER) | payer MEDICARE, BC ==
[~2023-09-27] VITALS: Ht 170.2 cm; Wt 104.3 kg
[~2023-09-27 16:20] MED LIST changes: +FURO20; +OMEP20ER
[2023-09-27 16:37] VITALS: BP 141/93
[2023-09-27] MEDS ORDERED: Diphth,Pertuss(Acell),Tet Vac 0.5 ML VIAL IM ONE (16:40)
== END 2023-09-27 17:34 | disposition home or self-care (01) ==
LOC: ER 16:20
DX: S51.812A Laceration without foreign body of left forearm, initial encounter (principal); W26.8XXA Contact with other sharp object(s), not elsewhere classified, initial encounter; Z88.8 Allergy status to other drugs, medicaments and biological substances; Z91.018 Allergy to other foods; G43.909 Migraine, unspecified, not intractable, without status migrainosus
CPT/HCPCS: 90471; 90715; 99282-25

== ENCOUNTER 2023-11-17 15:03 | Emergency (ER) | payer MEDICARE, BC ==
[~2023-11-17] VITALS: Ht 170.2 cm; Wt 108.9 kg
[2023-11-17 16:42] LABS: BASOPHILS ABSOLUTE AUTO 0.04 K/mm3 (0.00-0.23); BASOPHILS PERCENT AUTO 0 % (0-2); EOSINOPHILS ABSOLUTE AUTO 0.16 K/mm3 (0.00-0.68); EOSINOPHILS PERCENT AUTO 1 % (0-6); Hematocrit 45.6 % (33.0-51.0); Hemoglobin 15.3 g/dL (11.5-16.0); IMMATURE GRAN ABSOLUTE AUTO 0.03 K/mm3 (0.00-0.10); IMMATURE GRAN PERCENT AUTO 0 % (0-1); LYMPHOCYTES ABSOLUTE AUTO 1.66 K/mm3 (0.84-5.20); LYMPHOCYTES PERCENT AUTO 13 % (21-46); MONOCYTES ABSOLUTE AUTO 0.69 K/mm3 (0.16-1.47); MONOCYTES PERCENT AUTO 5 % (4-13); Mean Corpuscular HGB 29.5 pg (26.0-34.0); Mean Corpuscular HGB Conc 33.6 g/dL (31.5-36.5); Mean Corpuscular Volume 88 fL (80-100); Mean Platelet Volume 9.3 fL (9.1-12.4); NEUTROPHILS ABSOLUTE AUTO 10.39 K/mm3 (1.96-9.15); NEUTROPHILS PERCENT AUTO 80 % (41-73); Platelet Count 287 K/mm3 (150-400); RDW Coefficient Variation 13.8 % (11.7-14.2); RDW Standard Deviation 44.6 fL (35.1-46.3); Red Blood Cell Count 5.18 M/mm3 (3.80-5.20); White Blood Cell Count 12.97 K/mm3 (4.00-11.30)
[2023-11-17 17:02] LABS: Albumin, Blood 3.4 g/dL (3.4-5.0); Albumin/Globulin Ratio 0.8 (0.8-1.8); Bilirubin, Total 1.2 mg/dL (0.1-1.0); Bun/Creatinine Ratio 18.8 (12.0-20.0); Calcium, Blood 9.2 mg/dL (8.5-10.1); Creatinine, Blood 0.48 mg/dL (0.40-1.00); Globulin, Blood 4.1 g/dL (2.2-4.0); Potassium, Blood 3.9 mmol/L (3.5-5.5); Total Protein, Blood 7.5 g/dL (6.4-8.2)
[2023-11-17] MEDS ORDERED: Morphine Sulfate 4 MG/1 ML Injection IV ONE (17:15)
[2023-11-17] MEDS ORDERED: Ondansetron HCl 2 MG / ML 2ML Vial IV ONE (17:15)
[2023-11-17 18:25] LABS: Source, Urine Clean Catch
[2023-11-17 18:27] LABS: Appearance, Urine Clear (Clear); Bilirubin, Urine Neg (Neg); Blood, Urine Neg (Neg); Color, Urine Yellow (P-Yellow); Glucose Qualitative, Urine Neg (Neg); Ketones, Urine 3+ (Neg); Leukocyte Esterase, Urine Neg (Neg); Nitrite, Urine Neg (Neg); Protein, Urine 1+ (Neg); Specific Gravity, Urine 1.005 (1.003-1.022); Urobilinogen, Urine 2+ (Normal)
[2023-11-17] MEDS ORDERED: HYDROmorphone HCl/Pf 1MG SYR IV ONE (19:00)
[2023-11-17 19:30] VITALS: BP 156/81
[2023-11-17] MEDS ORDERED: RX Prepack 6 Tabs Oxycodone 5mg UD ONE (19:35)
[2023-11-17] MEDS ORDERED: AMOCLA875 PO (19:40)
[2023-11-17] MEDS ORDERED: Amoxicillin/Clavulanate K 875 MG Tab PO ONE (19:40)
[2023-11-17] MEDS ORDERED: PRED20 PO (19:40)
[2023-11-17] MEDS ORDERED: DOCU100 PO (19:40)
[2023-11-17] MEDS ORDERED: PredniSONE 20 MG Tab PO ONE (19:45)
[2023-11-17] MEDS ORDERED: OMEP20ER PO (22:45)
[2023-11-17] MEDS ORDERED: Adipex-P37.5 M1 PO (22:46)
[2023-11-17] MEDS ORDERED: MONT10T PO (22:46)
== END 2023-11-17 19:30 | disposition home or self-care (01) ==
LOC: ER 15:03
PROVIDERS: Physician Assistant
DX: R10.84 Generalized abdominal pain (principal); J40 Bronchitis, not specified as acute or chronic; R11.2 Nausea with vomiting, unspecified; Z91.018 Allergy to other foods; Z88.1 Allergy status to other antibiotic agents; Z79.899 Other long term (current) drug therapy; G43.909 Migraine, unspecified, not intractable, without status migrainosus
CPT/HCPCS: 71046; 74176; 80053; 83690; 85025; 93005; 93010; 96374-59; 96375; 99284-25; A9270; J1170; J2270; J2405; J7512

== ENCOUNTER 2023-12-08 12:25 | Emergency (ER) | payer MEDICARE, BC ==
[~2023-12-08] VITALS: Ht 170.2 cm; Wt 109.8 kg
[~2023-12-08 12:25] MED LIST changes: +AMOCLA875 PO; +Adipex-P37.5 M1 PO; +DOCU100 PO; +MONT10T PO; +OMEP20ER PO
[2023-12-08 12:32] VITALS: BP 148/136
== END 2023-12-08 14:39 | disposition home or self-care (01) ==
LOC: ER 12:25
DX: S63.295A Dislocation of distal interphalangeal joint of left ring finger, initial encounter (principal); S80.02XA Contusion of left knee, initial encounter; S80.01XA Contusion of right knee, initial encounter; S00.83XA Contusion of other part of head, initial encounter; G43.909 Migraine, unspecified, not intractable, without status migrainosus; W01.0XXA Fall on same level from slipping, tripping and stumbling without subsequent striking against object, initial encounter; Z79.899 Other long term (current) drug therapy; Z91.018 Allergy to other foods; Z88.1 Allergy status to other antibiotic agents
CPT/HCPCS: 26725; 73130; 99283-25

== ENCOUNTER 2024-01-19 13:01 | Inpatient (IN) | payer MEDICARE, BC ==
[~2024-01-19] VITALS: Ht 172.7 cm; Wt 113.1 kg
[2024-01-19] MEDS ORDERED: Morphine Sulfate 4 MG/1 ML Injection IV ONE (13:55)
[2024-01-19] MEDS ORDERED: Ondansetron HCl 2 MG / ML 2ML Vial IV ONE (13:55)
[2024-01-19] MEDS ORDERED: BENZONATATE100 MG PO (14:22)
[2024-01-19 14:32] LABS: BASOPHILS ABSOLUTE AUTO 0.04 K/mm3 (0.00-0.23); BASOPHILS PERCENT AUTO 0 % (0-2); EOSINOPHILS ABSOLUTE AUTO 0.09 K/mm3 (0.00-0.68); EOSINOPHILS PERCENT AUTO 1 % (0-6); Hematocrit 43.9 % (33.0-51.0); Hemoglobin 14.6 g/dL (11.5-16.0); IMMATURE GRAN ABSOLUTE AUTO 0.08 K/mm3 (0.00-0.10); IMMATURE GRAN PERCENT AUTO 1 % (0-1); LYMPHOCYTES ABSOLUTE AUTO 1.62 K/mm3 (0.84-5.20); LYMPHOCYTES PERCENT AUTO 9 % (21-46); MONOCYTES PERCENT AUTO 5 % (4-13); Mean Corpuscular HGB 29.9 pg (26.0-34.0); Mean Corpuscular HGB Conc 33.3 g/dL (31.5-36.5); Mean Corpuscular Volume 90 fL (80-100); Mean Platelet Volume 9.4 fL (9.1-12.4); NEUTROPHILS ABSOLUTE AUTO 14.49 K/mm3 (1.96-9.15); NEUTROPHILS PERCENT AUTO 84 % (41-73); Platelet Count 286 K/mm3 (150-400); RDW Coefficient Variation 13.2 % (11.7-14.2); RDW Standard Deviation 43.5 fL (35.1-46.3); Red Blood Cell Count 4.88 M/mm3 (3.80-5.20); White Blood Cell Count 17.22 K/mm3 (4.00-11.30)
[2024-01-19 14:44] LABS: Source, Urine Clean Catch
[2024-01-19 14:47] LABS: Appearance, Urine Clear (Clear); Bilirubin, Urine Neg (Neg); Blood, Urine 2+ (Neg); Color, Urine Yellow (P-Yellow); Glucose Qualitative, Urine Neg (Neg); Ketones, Urine 3+ (Neg); Leukocyte Esterase, Urine Neg (Neg); Nitrite, Urine Neg (Neg); Protein, Urine 2+ (Neg); Urobilinogen, Urine 2+ (Normal); pH, Urine 6.5 (5.0-8.0)
[2024-01-19 15:01] LABS: Bacteria Few /hpf; Mucus Light (0-Heavy); Squamous Epithelial Cells Few /hpf (Few); White Blood Cells, Urine 0-2 /hpf (0-5)
[2024-01-19 15:09] LABS: Albumin, Blood 3.5 g/dL (3.4-5.0); Bilirubin, Total 1.5 mg/dL (0.1-1.0); Bun/Creatinine Ratio 27.4 (12.0-20.0); Calcium, Blood 9.7 mg/dL (8.5-10.1); Creatinine, Blood 0.48 mg/dL (0.40-1.00); Globulin, Blood 3.5 g/dL (2.2-4.0); Potassium, Blood 3.6 mmol/L (3.5-5.5)
[2024-01-19] MEDS ORDERED: HYDROmorphone HCl/Pf 1MG SYR IV ONE (16:15)
[2024-01-19] MEDS ORDERED: NS 1,000 ML IV SCH (16:15)
[2024-01-19] MEDS ORDERED: FLU VACC TS2024-25(6MOS UP)/PF 45 MCG/0.5 ML SYRINGE IM SCH (17:20)
[2024-01-19] MEDS ORDERED: HYDROmorphone HCl/Pf 1MG SYR IV PRN (17:20)
[2024-01-19] MEDS ORDERED: Ondansetron HCl 2 MG / ML 2ML Vial IV PRN (17:20)
[2024-01-19] MEDS ORDERED: Lactated Ringer's 1,000 ML IV SCH (17:20)
[2024-01-19] MEDS ORDERED: Colace100 MG PO (17:22)
[2024-01-19] MEDS ORDERED: IBU800 MG PO (17:23)
[2024-01-19] MEDS ORDERED: Polyethylene Glycol 3350 17 gm PO PRN (17:25)
[2024-01-19] MEDS ORDERED: Metoprolol Tartrate 1 MG/ML 5 ML VIAL IV PRN (17:55)
[2024-01-19] MEDS ORDERED: Lisinopril 20 MG Tab PO SCH (18:00)
[2024-01-19 20:56] VITALS: BP 140/90
--- NOTE | 2024-01-20 04:14 | NUR ---
SHIFT SUMMARY INITIAL ADMISSION ASSESSMENT COMPLETED BY CHARGE NURSE IRIS. SKIN CHECK WITH THIS PERSONNEL SECURITY ASSISTANT AND RN IRIS. PT IS A&O X4, ABLE TO MAKE HER NEEDS KNOWN, COOPERATIVE WITH CARE. PT C/O SEVERE ABDOMINAL AND BACK PAIN. MEDICATED PER EMAR Q2-3HR INTERVALS. PT IS 1-PERSON ASSIST. LR @50MLS/HR ORDERED INFUSING. MEDICATED FOR NAUSEA WITH PRN ZOFRAN Q6HRS. NO VOMIT. MODERATE ABDOMINAL DISTENSION. TELE: SR @89. NO ACUTE EVENTS DURING THIS SHIFT. BED AT THE LOWEST POSITION, CALL LIGHT WITHIN REACH.
[2024-01-20 04:23] VITALS: BP 105/64
[2024-01-20 04:55] LABS: BASOPHILS ABSOLUTE AUTO 0.04 K/mm3 (0.00-0.23); BASOPHILS PERCENT AUTO 0 % (0-2); EOSINOPHILS ABSOLUTE AUTO 0.09 K/mm3 (0.00-0.68); EOSINOPHILS PERCENT AUTO 1 % (0-6); Hematocrit 39.2 % (33.0-51.0); Hemoglobin 13.1 g/dL (11.5-16.0); IMMATURE GRAN ABSOLUTE AUTO 0.08 K/mm3 (0.00-0.10); IMMATURE GRAN PERCENT AUTO 0 % (0-1); LYMPHOCYTES ABSOLUTE AUTO 1.82 K/mm3 (0.84-5.20); LYMPHOCYTES PERCENT AUTO 10 % (21-46); MONOCYTES ABSOLUTE AUTO 1.29 K/mm3 (0.16-1.47); MONOCYTES PERCENT AUTO 7 % (4-13); Mean Corpuscular HGB 30.3 pg (26.0-34.0); Mean Corpuscular HGB Conc 33.4 g/dL (31.5-36.5); Mean Corpuscular Volume 91 fL (80-100); Mean Platelet Volume 9.6 fL (9.1-12.4); NEUTROPHILS ABSOLUTE AUTO 14.72 K/mm3 (1.96-9.15); NEUTROPHILS PERCENT AUTO 82 % (41-73); Platelet Count 271 K/mm3 (150-400); RDW Coefficient Variation 13.3 % (11.7-14.2); RDW Standard Deviation 44.7 fL (35.1-46.3); Red Blood Cell Count 4.33 M/mm3 (3.80-5.20); White Blood Cell Count 18.04 K/mm3 (4.00-11.30)
[2024-01-20 05:13] LABS: Alanine Aminotransfer (ALT/SGP 20 U/L (12-78); Albumin, Blood 2.8 g/dL (3.4-5.0); Albumin/Globulin Ratio 0.8 (0.8-1.8); Alk Phos 112 U/L (50-136); Anion Gap 10 mmol/L (3-11); Aspartate Aminotrans (AST/SGOT 13 U/L (12-37); Bilirubin, Total 1.5 mg/dL (0.1-1.0); Blood Urea Nitrogen 11 mg/dL (8-24); Bun/Creatinine Ratio 26.6 (12.0-20.0); CHOL/HDL RATIO 2.7; CO2, Blood 26 mmol/L (21-32); Calcium, Blood 8.4 mg/dL (8.5-10.1); Chloride, Blood 106 mmol/L (98-108); Cholesterol 183 mg/dL (50-200); Creatinine, Blood 0.41 mg/dL (0.40-1.00); Globulin, Blood 3.4 g/dL (2.2-4.0); Glomerular Filtration Rate 106 (60-); Glucose, Blood 125 mg/dL (70-99); HDL Cholesterol 68 mg/dL (>39); LDL/HDL RATIO 1.5; Low Density Lipoprotein Chol 101 mg/dL (0-110); Potassium, Blood 3.7 mmol/L (3.5-5.5); Sodium, Blood 138 mmol/L (136-145); Total Protein, Blood 6.2 g/dL (6.4-8.2); Triglycerides 68 mg/dL (30-160); Very Low Density Lipoprot Chol 13 mg/dL (6-32)
[2024-01-20 07:04] VITALS: BP 131/70
[2024-01-20] MEDS ORDERED: Enoxaparin 40 MG/0.4 ML SYR SC SCH (09:00)
[2024-01-20] MEDS ORDERED: Acetaminophen 325 MG TABLET PO PRN (09:55)
[2024-01-20 14:43] VITALS: BP 150/77
--- NOTE | 2024-01-20 16:55 | NUR ---
SHIFT SUMMARY A/OX4. ABLE TO USE BSC WITH MINIMAL ASSIST BACK TO BED, DIFFICULTY RAISING RIGHT LEG D/T PAST SURGERY. TELEMETRY IN PLACE, SINUS TACH MOST OF SHIFT. REQUIRED ONE DOSE PAIN MED PER MAY. TOLERATING CLEAR LIQUID DIET MODERATELY WELL, NO INCREASED PAIN BUT NOT ABLE TO TOLERATE MUCH VOLUME WITHOUT FEELING VERY FULL. ABLE TO MAKE NEEDS KNOWN. CALL LIGHT IN REACH, CARES ONGOING.
[2024-01-20 19:21] VITALS: BP 106/63
[2024-01-21 02:40] VITALS: BP 118/74
--- NOTE | 2024-01-21 03:20 | NUR ---
SHIFT SUMMARY PT RESTING T/O THIS SHIFT. C/O EPIGASTRIC PAIN 8/10 AND H/A. MEDICATED PER EMAR WITH GOOD EFFECTIVNESS. MEDICATED WITH PRN ZOFRAN X1 FOR C/O NAUSEA. NO VOMITING DURING THIS SHIFT. PT CONTINUES ON CLEAR LIQUID DIET PER ORDER. LEFT RING FINGER SLIGHTLY SWOLLEN D/T HX DISLOCATION. PT IS SBA TO BEDSIDE COMMODE. NO ACUTE EVENTS DURING THIS SHIFT. PT IS ABLE TO MAKE HER NEEDS KNOWN AND COOPERATIVE WITH CARE. BED AT THE LOWEST POSITION, CALL LIGHT W/I REACH.
[2024-01-21 07:02] VITALS: BP 134/75
[2024-01-21 09:24] LABS: BASOPHILS ABSOLUTE AUTO 0.03 K/mm3 (0.00-0.23); BASOPHILS PERCENT AUTO 0 % (0-2); EOSINOPHILS ABSOLUTE AUTO 0.14 K/mm3 (0.00-0.68); EOSINOPHILS PERCENT AUTO 1 % (0-6); Hematocrit 38.9 % (33.0-51.0); Hemoglobin 12.7 g/dL (11.5-16.0); IMMATURE GRAN ABSOLUTE AUTO 0.07 K/mm3 (0.00-0.10); IMMATURE GRAN PERCENT AUTO 1 % (0-1); LYMPHOCYTES ABSOLUTE AUTO 1.68 K/mm3 (0.84-5.20); LYMPHOCYTES PERCENT AUTO 13 % (21-46); MONOCYTES PERCENT AUTO 7 % (4-13); Mean Corpuscular HGB Conc 32.6 g/dL (31.5-36.5); Mean Corpuscular Volume 92 fL (80-100); Mean Platelet Volume 9.6 fL (9.1-12.4); NEUTROPHILS ABSOLUTE AUTO 10.55 K/mm3 (1.96-9.15); NEUTROPHILS PERCENT AUTO 79 % (41-73); Platelet Count 267 K/mm3 (150-400); RDW Coefficient Variation 13.4 % (11.7-14.2); RDW Standard Deviation 45.5 fL (35.1-46.3); Red Blood Cell Count 4.24 M/mm3 (3.80-5.20); White Blood Cell Count 13.37 K/mm3 (4.00-11.30)
[2024-01-21 09:56] LABS: Albumin, Blood 2.7 g/dL (3.4-5.0); Albumin/Globulin Ratio 0.8 (0.8-1.8); Bilirubin, Total 1.5 mg/dL (0.1-1.0); Bun/Creatinine Ratio 20.6 (12.0-20.0); Calcium, Blood 8.4 mg/dL (8.5-10.1); Creatinine, Blood 0.53 mg/dL (0.40-1.00); Globulin, Blood 3.6 g/dL (2.2-4.0); Potassium, Blood 3.6 mmol/L (3.5-5.5); Total Protein, Blood 6.3 g/dL (6.4-8.2)
[2024-01-21 15:11] VITALS: BP 137/69
[2024-01-21 19:33] VITALS: BP 105/66
--- NOTE | 2024-01-21 19:56 | NUR ---
END OF SHIFT SUMMARY: A&Ox4. PLEASANT AND COOPERATIVE WITH CARE. CALLS APPROPRIATELY AND IS ABLE TO ADVOCATE NEEDS EFFECTIVELY. AMBULATES INDEPENDENTLY WITHIN THE ROOM; SBA PRN. CONTINENT OF BOWEL AND BLADDER. LBM PRIOR TO ADMISSION: NIGHT NURSE WILL GIVE MIRALAX. MEDS WHOLE WITH FLUIDS. TELE WNL. MEDICATED PRN PAIN AND NAUSEA x2. IV BENT AND LEAKING; REPLACED. BED IN LOWEST POSITION. CALL LIGHT WITHIN REACH. ALL NEEDS MET. REPORT TO ONCOMING NURSE.
--- NOTE | 2024-01-22 05:22 | NUR ---
ADMITTED 01/19/24: ACUTE PANCREATITIS.AAOX4. TELE IN PLACE. SBA TO BSC, CONTINENT OF URINE AND BOWELS. PRN MIRALAX GIVEN @ HS. DC PLAN: HOME AFTER TOLERATING PO, TOLERATING CLEAR DIET THIS SHIFT.
[2024-01-22 05:33] VITALS: BP 110/66
[2024-01-22 06:23] LABS: BASOPHILS ABSOLUTE AUTO 0.04 K/mm3 (0.00-0.23); BASOPHILS PERCENT AUTO 1 % (0-2); EOSINOPHILS ABSOLUTE AUTO 0.25 K/mm3 (0.00-0.68); EOSINOPHILS PERCENT AUTO 3 % (0-6); Hematocrit 39.7 % (33.0-51.0); Hemoglobin 12.9 g/dL (11.5-16.0); IMMATURE GRAN ABSOLUTE AUTO 0.04 K/mm3 (0.00-0.10); IMMATURE GRAN PERCENT AUTO 1 % (0-1); LYMPHOCYTES ABSOLUTE AUTO 2.05 K/mm3 (0.84-5.20); LYMPHOCYTES PERCENT AUTO 24 % (21-46); MONOCYTES ABSOLUTE AUTO 0.62 K/mm3 (0.16-1.47); MONOCYTES PERCENT AUTO 7 % (4-13); Mean Corpuscular HGB 29.9 pg (26.0-34.0); Mean Corpuscular HGB Conc 32.5 g/dL (31.5-36.5); Mean Corpuscular Volume 92 fL (80-100); Mean Platelet Volume 9.8 fL (9.1-12.4); NEUTROPHILS ABSOLUTE AUTO 5.48 K/mm3 (1.96-9.15); NEUTROPHILS PERCENT AUTO 65 % (41-73); Platelet Count 286 K/mm3 (150-400); RDW Coefficient Variation 13.2 % (11.7-14.2); RDW Standard Deviation 45.4 fL (35.1-46.3); Red Blood Cell Count 4.32 M/mm3 (3.80-5.20); White Blood Cell Count 8.48 K/mm3 (4.00-11.30)
[2024-01-22 06:45] LABS: Albumin, Blood 2.6 g/dL (3.4-5.0); Albumin/Globulin Ratio 0.7 (0.8-1.8); Bilirubin, Total 1.3 mg/dL (0.1-1.0); Bun/Creatinine Ratio 20.5 (12.0-20.0); Calcium, Blood 8.6 mg/dL (8.5-10.1); Creatinine, Blood 0.44 mg/dL (0.40-1.00); Globulin, Blood 3.9 g/dL (2.2-4.0); Magnesium, Blood 2.2 mg/dL (1.6-2.4); Potassium, Blood 3.7 mmol/L (3.5-5.5); Total Protein, Blood 6.5 g/dL (6.4-8.2)
[2024-01-22 07:35] VITALS: BP 121/65
[2024-01-22] MEDS ORDERED: ACET325 PO (11:59)
[2024-01-22] MEDS ORDERED: Prinivil10 MG PO (11:59)
--- NOTE | 2024-01-22 17:35 | NUR ---
DISCHARGE SUMMARY: A&Ox4. PLEASANT AND COOPERATIVE WITH CARE. CALLS APPROPRIATELY AND IS ABLE TO ADVOCATE NEEDS EFFECTIVELY. AMBULATES INDEPENDENTLY WITHIN ROOM. CONTINENT OF BOWEL AND BLADDER. LBM PRIOR TO ADMIT. MEDS WHOLE WITH FLUIDS. PAIN CONTROLLED TODAY. TELE SINUS RHYTHM. NO ACUTE CONCERNS OR EVENTS TODAY. MEDICATIONS FAXED TO [facility]. INSTRUCTED TO FOLLOW-UP WITH PCP ORDERED. LEFT FLOOR AT WITH ALL BELONGINGS AND DISCHARGE PACKET.
== END 2024-01-22 13:40 | disposition home or self-care (01) | DRG 440 ==
LOC: ER 13:01 → MEDS 18:57 → ENPENDDIS 01-22 11:15 → MEDS 01-22 13:40
PROVIDERS: Hospitalist; Physician Assistant; ADMIT Family Medicine
DX: K85.90 Acute pancreatitis without necrosis or infection, unspecified (principal); I16.0 Hypertensive urgency; J45.909 Unspecified asthma, uncomplicated; E78.5 Hyperlipidemia, unspecified; E66.01 Morbid (severe) obesity due to excess calories; Z68.38 Body mass index [BMI] 38.0-38.9, adult; R31.29 Other microscopic hematuria; M79.7 Fibromyalgia; G43.909 Migraine, unspecified, not intractable, without status migrainosus; Z96.641 Presence of right artificial hip joint; Z90.49 Acquired absence of other specified parts of digestive tract; Z79.899 Other long term (current) drug therapy; Z90.710 Acquired absence of both cervix and uterus; Z88.8 Allergy status to other drugs, medicaments and biological substances; Z91.018 Allergy to other foods
CPT/HCPCS: 36415; 51701; 74177; 80053; 80061; 81001; 83690; 83735; 84100; 85025; 96361; 96372; 96374-59; 96375; 96376; 99285-25; A9270; G0378; J1171; J1650; J2270; J2405; J7030; J7120; Q9967

== ENCOUNTER 2024-04-14 15:59 | Emergency (ER) | payer MEDICARE, BC ==
[~2024-04-14] VITALS: Ht 170.2 cm; Wt 108.0 kg
[~2024-04-14 15:59] MED LIST changes: +ACET325 PO; +BENZONATATE100 MG PO; +Colace100 MG PO; +IBU800 MG PO; +Prinivil10 MG PO
[2024-04-14 16:38] LABS: BASOPHILS ABSOLUTE AUTO 0.02 K/mm3 (0.00-0.23); BASOPHILS PERCENT AUTO 1 % (0-2); EOSINOPHILS ABSOLUTE AUTO 0.02 K/mm3 (0.00-0.68); EOSINOPHILS PERCENT AUTO 1 % (0-6); Hematocrit 42.2 % (33.0-51.0); Hemoglobin 14.3 g/dL (11.5-16.0); IMMATURE GRAN ABSOLUTE AUTO 0.01 K/mm3 (0.00-0.10); IMMATURE GRAN PERCENT AUTO 0 % (0-1); LYMPHOCYTES ABSOLUTE AUTO 1.03 K/mm3 (0.84-5.20); LYMPHOCYTES PERCENT AUTO 35 % (21-46); MONOCYTES ABSOLUTE AUTO 0.42 K/mm3 (0.16-1.47); MONOCYTES PERCENT AUTO 14 % (4-13); Mean Corpuscular HGB 29.7 pg (26.0-34.0); Mean Corpuscular HGB Conc 33.9 g/dL (31.5-36.5); Mean Corpuscular Volume 88 fL (80-100); Mean Platelet Volume 9.8 fL (9.1-12.4); NEUTROPHILS ABSOLUTE AUTO 1.42 K/mm3 (1.96-9.15); NEUTROPHILS PERCENT AUTO 49 % (41-73); Platelet Count 250 K/mm3 (150-400); RDW Coefficient Variation 13.1 % (11.7-14.2); RDW Standard Deviation 41.5 fL (35.1-46.3); Red Blood Cell Count 4.82 M/mm3 (3.80-5.20); White Blood Cell Count 2.92 K/mm3 (4.00-11.30)
[2024-04-14 16:59] LABS: Albumin, Blood 2.9 g/dL (3.4-5.0); Albumin/Globulin Ratio 0.8 (0.8-1.8); Bilirubin, Total 0.6 mg/dL (0.1-1.0); Bun/Creatinine Ratio 29.9 (12.0-20.0); Calcium, Blood 8.8 mg/dL (8.5-10.1); Creatinine, Blood 0.57 mg/dL (0.40-1.00); Globulin, Blood 3.8 g/dL (2.2-4.0); Potassium, Blood 3.8 mmol/L (3.5-5.5); Total Protein, Blood 6.7 g/dL (6.4-8.2)
[2024-04-14] MEDS ORDERED: BENZ100A PO (22:14)
[2024-04-14 22:30] VITALS: BP 125/67
[2024-04-14] MEDS ORDERED: Benzonatate 100 MG Cap PO ONE (22:30)
== END 2024-04-14 23:09 | disposition home or self-care (01) ==
LOC: ER 15:59
PROVIDERS: Physician Assistant
DX: R05.3 Chronic cough (principal); Z79.899 Other long term (current) drug therapy; Z88.1 Allergy status to other antibiotic agents; Z91.018 Allergy to other foods
CPT/HCPCS: 71046; 71260; 80053; 83880; 84484; 85025; 85379; 93005; 93010; 99284-25; A9270; Q9967

== ENCOUNTER → 2024-08-27 | Outpatient (CLI) | payer MEDICARE, BC | LOC: LAB 13:37 → LAB SHORT 13:37 | DX: L57.0 Actinic keratosis (principal) | CPT/HCPCS: 88305 ==

== ENCOUNTER 2024-11-08 11:18 | Emergency (ER) | payer MEDICARE, BC ==
[~2024-11-08] VITALS: Ht 170.2 cm; Wt 113.4 kg
[2024-11-08 12:26] LABS: BASOPHILS ABSOLUTE AUTO 0.02 K/mm3 (0.00-0.23); BASOPHILS PERCENT AUTO 0 % (0-2); EOSINOPHILS ABSOLUTE AUTO 0.00 K/mm3 (0.00-0.68); EOSINOPHILS PERCENT AUTO 0 % (0-6); Hematocrit 41.9 % (33.0-51.0); Hemoglobin 13.8 g/dL (11.5-16.0); IMMATURE GRAN ABSOLUTE AUTO 0.02 K/mm3 (0.00-0.10); IMMATURE GRAN PERCENT AUTO 0 % (0-1); LYMPHOCYTES ABSOLUTE AUTO 0.84 K/mm3 (0.84-5.20); LYMPHOCYTES PERCENT AUTO 12 % (21-46); MONOCYTES ABSOLUTE AUTO 0.67 K/mm3 (0.16-1.47); MONOCYTES PERCENT AUTO 10 % (4-13); Mean Corpuscular HGB Conc 32.9 g/dL (31.5-36.5); Mean Corpuscular Volume 88 fL (80-100); NEUTROPHILS ABSOLUTE AUTO 5.41 K/mm3 (1.96-9.15); NEUTROPHILS PERCENT AUTO 78 % (41-73); NRBC ABSOLUTE 0.00 K/mm3 (0.00-0.02); NRBC Auto 0.0 /100 WBC (0.0-0.2); Platelet Count 218 K/mm3 (150-400); RDW Coefficient Variation 14.3 % (11.7-14.2); RDW Standard Deviation 45.4 fL (35.1-46.3)
[2024-11-08] MEDS ORDERED: Phentermine HCl15 MG PO (12:39)
[2024-11-08] MEDS ORDERED: FOLIC ACID TAB 1MG (12:40)
[2024-11-08] MEDS ORDERED: FLUCONAZOL100 MG/51 IV (12:40)
[2024-11-08 12:57] LABS: Alanine Aminotransfer (ALT/SGP 25.0 U/L (12-78); Albumin, Blood 3.2 g/dL (3.4-5.0); Albumin/Globulin Ratio 0.8 (0.8-1.8); Anion Gap 8.0 mmol/L (3-11); Aspartate Aminotrans (AST/SGOT 24.0 U/L (12-37); Bilirubin, Total 1.1 mg/dL (0.1-1.0); Blood Urea Nitrogen 13.0 mg/dL (8-24); CO2, Blood 26.0 mmol/L (21-32); Calcium, Blood 8.1 mg/dL (8.5-10.1); Chloride, Blood 103.0 mmol/L (98-108); Creatinine, Blood 0.5 mg/dL (0.40-1.00); Globulin, Blood 3.9 g/dL (2.2-4.0); Glucose, Blood 100.0 mg/dL (70-99); Potassium, Blood 3.5 mmol/L (3.5-5.5); Sodium, Blood 133.0 mmol/L (136-145); Total Protein, Blood 7.1 g/dL (6.4-8.2)
[2024-11-08 14:57] LABS: Influenza A, PCR NEGATIVE (NEGATIVE); Influenza B, PCR NEGATIVE (NEGATIVE); Resp Syncytial Virus, PCR NEGATIVE (NEGATIVE)
[2024-11-08 15:01] LABS: SARS-Cov-2 (COVID-19) PCR, MMC POSITIVE (NEGATIVE)
[2024-11-08] MEDS ORDERED: Q-Tussin100 MG/5 M PO (15:16)
[2024-11-08] MEDS ORDERED: ALBU90OI INH (15:16)
[2024-11-08 15:39] VITALS: BP 137/69
== END 2024-11-08 15:40 | disposition home or self-care (01) ==
LOC: ER 11:18
PROVIDERS: Emergency Medicine
DX: U07.1 COVID-19 (principal); Z91.018 Allergy to other foods; Z88.8 Allergy status to other drugs, medicaments and biological substances; Z79.2 Long term (current) use of antibiotics; Z90.49 Acquired absence of other specified parts of digestive tract; Z90.710 Acquired absence of both cervix and uterus
CPT/HCPCS: 71045; 80053; 83605; 85025; 87040; 87077; 87186; 87637; 99283-25; A9270

== ENCOUNTER → 2024-12-04 | Outpatient (CLI) | payer MEDICARE, BC ==
[~2024-12-04] MED LIST changes: +FLUCONAZOL100 MG/51 IV; +FOLIC ACID TAB 1MG; +Phentermine HCl15 MG PO; +Q-Tussin100 MG/5 M PO
[2024-12-04 20:03] LABS: U Amphetamine Screen DETECTED; U Methamphetamine Screen DETECTED
[2024-12-04 20:04] LABS: U Barbituate Screen Not Detected; U Benzodiazapine Screen Not Detected; U Buprenorphine Screen Not Detected; U Cannabinoids Screen Not Detected; U Cocaine Screen Not Detected; U Methadone Screen Not Detected; U Opiates Screen DETECTED; U Oxycodone Screen Not Detected; U Phencyclidine Screen Not Detected
[2024-12-07 11:34] LABS: COTININE, URN, SCREEN Negative
== END ==
LOC: LAB SHORT 13:31 → LAB 13:31 → LAB FUT 09-19 13:15
PROVIDERS: Student in an Organized Health Care Education/Training Program
DX: E66.813 Obesity, class 3 (principal); M15.0 Primary generalized (osteo)arthritis; K21.9 Gastro-esophageal reflux disease without esophagitis; K44.9 Diaphragmatic hernia without obstruction or gangrene; Z68.41 Body mass index [BMI] 40.0-44.9, adult